=== PATIENT | male | born 1960 | race African-American/Black ===

== ENCOUNTER 2018-05-10 13:21 | Emergency (ER) | payer MEDICAID, OTHER ==
[~2018-05-10] VITALS: Ht 167.6 cm; Wt 96.0 kg
[~2018-05-10 13:21] MED LIST: NITR0.4T49 SL; TRAMADOL
[2018-05-10 13:31] VITALS: BP 165/105
[2018-05-10] MEDS ORDERED: BACITRACIN ZINC OINT UDPKT TOP ONE (15:15)
[2018-05-10] MEDS ORDERED: TETANUS, DIPHTHERIA, PERTUSSIS VAC/PF 0.5ML (>7YR OLD) IM ONE (15:15)
[2018-05-10] MEDS ORDERED: KETOROLAC 60MG/2ML VIAL IM ONE (15:15)
== END 2018-05-10 17:56 | disposition home or self-care (01) ==
LOC: ER 13:21
DX: S80.811A Abrasion, right lower leg, initial encounter (principal); M25.521 Pain in right elbow; M25.531 Pain in right wrist; M79.631 Pain in right forearm; I10 Essential (primary) hypertension; I51.9 Heart disease, unspecified; Z79.899 Other long term (current) drug therapy; V29.88XA Motorcycle rider (driver) (passenger) injured in other specified transport accidents, initial encounter; Y93.89 Activity, other specified; Y92.89 Other specified places as the place of occurrence of the external cause; Y99.8 Other external cause status
CPT/HCPCS: 73080; 73090; 73110; 90471; 90715; 96372; 99284; J1885

== ENCOUNTER 2019-11-08 14:24 | Emergency (ER) | payer OTHER ==
[~2019-11-08] VITALS: Ht 172.7 cm; Wt 100.0 kg
[2019-11-08] MEDS ORDERED: TETANUS, DIPHTHERIA, PERTUSSIS VAC/PF 0.5ML (>7YR OLD) IM ONE (15:15)
[2019-11-08] MEDS ORDERED: AMOXICILLIN/POTASSIUM CLAVULANATE 875/125MG TAB PO ONE (15:15)
[2019-11-08] MEDS ORDERED: ACETAMINOPHEN 325MG TABLET PO ONE (15:15)
[2019-11-08] MEDS ORDERED: KETOROLAC 60MG/2ML VIAL IM ONE (15:15)
[2019-11-08 17:47] VITALS: BP 140/83
== END 2019-11-08 17:48 | disposition home or self-care (01) ==
LOC: ER 14:24
DX: S01.501A Unspecified open wound of lip, initial encounter (principal); W18.39XA Other fall on same level, initial encounter; Y93.89 Activity, other specified; Y92.89 Other specified places as the place of occurrence of the external cause; Y99.8 Other external cause status; F10.10 Alcohol abuse, uncomplicated; Y90.0 Blood alcohol level of less than 20 mg/100 ml; M79.662 Pain in left lower leg; M79.661 Pain in right lower leg; I10 Essential (primary) hypertension
CPT/HCPCS: 70450; 72170; 90471; 90715; 96372; 99284; J1885

== ENCOUNTER 2019-12-23 00:23 | Emergency (ER) | payer MEDICAID, OTHER ==
[~2019-12-23] VITALS: Ht 180.3 cm; Wt 104.0 kg
[2019-12-23 03:59] LABS: BASOPHILS % 1.1 % (0.0-2.0); EOSINOPHILS % 0.6 % (0.0-5.0); HEMATOCRIT. 46.2 % (42.0-52.0); HEMOGLOBIN. 15.7 g/dL (14.0-18.0); MEAN CORPUSCULAR VOLUME 91.5 fL (80.0-94.0); MEAN PLATELET VOLUME 7.5 fl (7.4-10.4); MONOCYTES % 5.3 % (2.0-8.0); PLATELET 374 x1000/uL (130-400); RED BLOOD CELL COUNT 5.05 mill/uL (4.7-6.1); RED CELL DISTRIBUTION WIDTH 15.5 % (11.6-14.6)
[2019-12-23 04:01] LABS: CHLORIDE 109 mEq/L (98-107); INR 0.9; PROTHROMBIN TIME 10.2 sec (9.6-11.0)
[2019-12-23 04:02] LABS: CLARITY URINE CLEAR (CLEAR); COLOR URINE YELLOW (YELLOW); KETONES URINE NEGATIVE (NEGATIVE); LEUKOCYTE ESTERASE URINE NEGATIVE (NEGATIVE); NITRITE URINE NEGATIVE (NEGATIVE); OCCULT BLOOD URINE NEGATIVE (NEGATIVE); PROTEIN URINE NEGATIVE (NEGATIVE); SPECIFIC GRAVITY URINE 1.007 (1.005-1.030); UROBILINOGEN URINE 0.2 E.U./dL (0.2-1.0)
[2019-12-23 04:23] LABS: ETHANOL BLOOD 368 mg/dL
[2019-12-23 08:28] VITALS: BP 112/63
== END 2019-12-23 08:28 | disposition home or self-care (01) ==
LOC: ER 00:23
DX: F10.129 Alcohol abuse with intoxication, unspecified (principal); I11.9 Hypertensive heart disease without heart failure; M19.90 Unspecified osteoarthritis, unspecified site; Y90.8 Blood alcohol level of 240 mg/100 ml or more
CPT/HCPCS: 36415; 80053; 80320; 81003; 83880; 84484; 85025; 93005; 99285; G0480

== ENCOUNTER 2020-12-29 11:25 | Emergency (ER) | payer MEDICAID ==
[~2020-12-29] VITALS: Ht 177.8 cm; Wt 82.0 kg
[2020-12-29] MEDS ORDERED: METHOCARBAMOL 500MG TABLET PO ONE (13:30)
[2020-12-29] MEDS ORDERED: HYDROCODONE/ACETAMINOPHEN 5/325MG TABLET PO ONE (13:30)
[2020-12-29 14:40] LABS: *AMPHETAMINES SCREEN URINE NEGATIVE (NEGATIVE); *BARBITURATES SCREEN URINE NEGATIVE (NEGATIVE); *BENZODIAZEPINES SCREEN URINE NEGATIVE (NEGATIVE); *COCAINE SCREEN URINE PRESUMTIVE POSITIVE (NEGATIVE)
[2020-12-29 14:41] LABS: CANNABINOID URINE SCREEN PRESUMTIVE POSITIVE (NEGATIVE); METHADONE URINE SCREEN NEGATIVE (NEGATIVE); OPIATES URINE SCREEN NEGATIVE (NEGATIVE); PHENCYCLIDINE URINE SCREEN NEGATIVE (NEGATIVE)
[2020-12-29] MEDS ORDERED: METH-773 MT (16:12)
[2020-12-29] MEDS ORDERED: IBUP-2029 MT (16:12)
[2020-12-29 17:14] VITALS: BP 151/88
== END 2020-12-29 17:15 | disposition home or self-care (01) ==
LOC: ER 11:25
DX: M54.9 Dorsalgia, unspecified (principal); G89.29 Other chronic pain; M19.09 Primary osteoarthritis, other specified site; I11.9 Hypertensive heart disease without heart failure; F17.200 Nicotine dependence, unspecified, uncomplicated
CPT/HCPCS: 72131; 80305; 99284; Z7610

== ENCOUNTER 2021-01-23 20:42 | Inpatient (IN) | payer MEDICAID ==
[~2021-01-23] VITALS: Ht 165.1 cm; Wt 69.4 kg
[~2021-01-23 20:42] MED LIST changes: +IBUP-2029 MT; +METH-773 MT
[2021-01-23 22:45] LABS: CLARITY URINE CLEAR (CLEAR); COLOR URINE YELLOW (YELLOW); KETONES URINE NEGATIVE (NEGATIVE); LEUKOCYTE ESTERASE URINE 1+ (NEGATIVE); NITRITE URINE NEGATIVE (NEGATIVE); OCCULT BLOOD URINE 1+ (NEGATIVE); PROTEIN URINE NEGATIVE (NEGATIVE); UROBILINOGEN URINE 0.2 E.U./dL (0.2-1.0)
[2021-01-23] MEDS ORDERED: KETOROLAC 30MG/ML VIAL IV STA (22:50)
[2021-01-23] MEDS ORDERED: ONDANSETRON HCL 4MG/2ML INJ IV STA (22:50)
[2021-01-23 22:57] LABS: BASOPHILS % 0.9 % (0.0-2.0); EOSINOPHILS % 0.6 % (0.0-5.0); HEMATOCRIT. 39.6 % (42.0-52.0); HEMOGLOBIN. 13.1 g/dL (14.0-18.0); LYMPHOCYTES % 25.2 % (20.0-50.0); MEAN CORPUSCULAR HEMOGLOBIN 29.8 pg (28.0-32.0); MEAN CORPUSCULAR VOLUME 90.2 fL (80.0-94.0); MEAN PLATELET VOLUME 7.8 fl (7.4-10.4); MONOCYTES % 7.4 % (2.0-8.0); NEUTROPHILS % 65.9 % (40.0-76.0); PLATELET 222 x1000/uL (130-400); RED BLOOD CELL COUNT 4.39 mill/uL (4.7-6.1); RED CELL DISTRIBUTION WIDTH 14.9 % (11.6-14.6)
[2021-01-23] MEDS ORDERED: SODIUM CHLORIDE 0.9% 1,000 ML IV ONE (23:00)
[2021-01-23 23:03] LABS: CHLORIDE 110 mEq/L (98-107)
[2021-01-23 23:04] LABS: INR 1.1; PROTHROMBIN TIME 11.5 sec (9.6-11.0)
[2021-01-24] MEDS ORDERED: IOHEXOL-300 100 ML BOTTLE ONE (01:08)
[2021-01-24 11:30] VITALS: BP 162/92
[2021-01-24] MEDS ORDERED: ACETAMINOPHEN 325MG TABLET PO PRN ×2 (12:45)
[2021-01-24] MEDS ORDERED: CLONIDINE 0.1MG TABLET PO PRN (12:45)
[2021-01-24] MEDS ORDERED: IPRATROPIUM/ALBUTEROL 0.5-3(2.5)MG/3ML NEB HHN PRN (12:45)
[2021-01-24] MEDS ORDERED: LORAZEPAM 0.5MG TABLET PO PRN (12:45)
[2021-01-24] MEDS ORDERED: DOCUSATE SODIUM 100MG CAPSULE PO PRN (12:45)
[2021-01-24] MEDS ORDERED: HYDROCODONE/ACETAMINOPHEN 5/325MG TABLET PO PRN (12:45)
[2021-01-24] MEDS ORDERED: POTASSIUM CHLORIDE 20MEQ TABLET SR PO SCH (13:00)
[2021-01-24] MEDS: AMLODIPINE 10MG TABLET PO SCH (14:39)
[2021-01-24] MEDS ORDERED: MORPHINE SULFATE 2 MG/ML CPJ (NOT FOR IM USE) IV PRN (15:30)
[2021-01-24 16:02] VITALS: BP 189/110
[2021-01-24] MEDS ORDERED: HYDRALAZINE HCL 100MG TABLET PO NR (16:30)
[2021-01-24 17:26] VITALS: BP 161/80
[2021-01-24 20:00] VITALS: BP 148/89
[2021-01-24] MEDS: ONDANSETRON HCL 4MG/2ML INJ IV PRN (21:25)
[2021-01-24] MEDS: HYDRALAZINE HCL 100MG TABLET PO SCH (21:30)
[2021-01-25] VITALS (7 sets, daily range): BP systolic 117–167; BP diastolic 74–100
[2021-01-25 06:14] LABS: CHLORIDE 102 mEq/L (98-107)
[2021-01-25 06:27] LABS: BASOPHILS % 0.3 % (0.0-2.0); EOSINOPHILS % 0.1 % (0.0-5.0); HEMATOCRIT. 46.5 % (42.0-52.0); HEMOGLOBIN. 15.5 g/dL (14.0-18.0); LYMPHOCYTES % 15.3 % (20.0-50.0); MEAN CORPUSCULAR HEMOGLOBIN 30.3 pg (28.0-32.0); MEAN CORPUSCULAR VOLUME 90.9 fL (80.0-94.0); MEAN PLATELET VOLUME 8.4 fl (7.4-10.4); MONOCYTES % 6.3 % (2.0-8.0); PLATELET 225 x1000/uL (130-400); RED BLOOD CELL COUNT 5.11 mill/uL (4.7-6.1); RED CELL DISTRIBUTION WIDTH 14.6 % (11.6-14.6)
[2021-01-25] MEDS: HYDRALAZINE HCL 100MG TABLET PO SCH ×3 (06:27→21:11)
[2021-01-25] MEDS: ONDANSETRON HCL 4MG/2ML INJ IV PRN (06:27)
[2021-01-25] MEDS: OMEPRAZOLE 20MG CAPSULE EXTENDED RELEASE PO SCH (06:28)
[2021-01-25] MEDS: AMLODIPINE 10MG TABLET PO SCH (09:10)
[2021-01-25] MEDS: THIAMINE HCL 100MG TABLET PO SCH (09:10)
[2021-01-25] MEDS ORDERED: POTASSIUM CHLORIDE INJ 40 MEQ in DEXT 5% WATER 250 ML IV NR (12:00)
[2021-01-25 14:00] LABS: *AMPHETAMINES SCREEN URINE NEGATIVE (NEGATIVE); *BARBITURATES SCREEN URINE NEGATIVE (NEGATIVE)
[2021-01-25 14:01] LABS: *BENZODIAZEPINES SCREEN URINE NEGATIVE (NEGATIVE); *COCAINE SCREEN URINE NEGATIVE (NEGATIVE); CANNABINOID URINE SCREEN PRESUMTIVE POSITIVE (NEGATIVE); METHADONE URINE SCREEN NEGATIVE (NEGATIVE); OPIATES URINE SCREEN NEGATIVE (NEGATIVE); PHENCYCLIDINE URINE SCREEN NEGATIVE (NEGATIVE)
[2021-01-26] VITALS (8 sets, daily range): BP systolic 107–141; BP diastolic 67–86
[2021-01-26] MEDS: HYDRALAZINE HCL 100MG TABLET PO SCH ×3 (05:31→20:37)
[2021-01-26] MEDS: OMEPRAZOLE 20MG CAPSULE EXTENDED RELEASE PO SCH (06:07)
[2021-01-26 06:57] LABS: CHLORIDE 105 mEq/L (98-107)
[2021-01-26 07:01] LABS: BASOPHILS % 0.4 % (0.0-2.0); HEMATOCRIT. 47.5 % (42.0-52.0); HEMOGLOBIN. 16.3 g/dL (14.0-18.0); LYMPHOCYTES % 19.3 % (20.0-50.0); MEAN CORPUSCULAR HEMOGLOBIN 31.1 pg (28.0-32.0); MEAN CORPUSCULAR VOLUME 90.6 fL (80.0-94.0); MEAN PLATELET VOLUME 8.4 fl (7.4-10.4); MONOCYTES % 8.4 % (2.0-8.0); NEUTROPHILS % 71.9 % (40.0-76.0); PLATELET 222 x1000/uL (130-400); RED BLOOD CELL COUNT 5.24 mill/uL (4.7-6.1); RED CELL DISTRIBUTION WIDTH 14.7 % (11.6-14.6)
[2021-01-26] MEDS: AMLODIPINE 10MG TABLET PO SCH (08:35)
[2021-01-26] MEDS: THIAMINE HCL 100MG TABLET PO SCH (08:35)
[2021-01-26] MEDS ORDERED: POTASSIUM CHLORIDE 20MEQ TABLET SR PO NR (11:45)
[2021-01-27] VITALS: BP 115/91
[2021-01-27 04:00] VITALS: BP 135/83
[2021-01-27] MEDS: OMEPRAZOLE 20MG CAPSULE EXTENDED RELEASE PO SCH (06:04)
[2021-01-27] MEDS: HYDRALAZINE HCL 100MG TABLET PO SCH ×2 (06:04→13:30)
[2021-01-27 07:30] LABS: CHLORIDE 104 mEq/L (98-107)
[2021-01-27 07:31] LABS: BASOPHILS % 0.5 % (0.0-2.0); EOSINOPHILS % 0.3 % (0.0-5.0); HEMATOCRIT. 46.8 % (42.0-52.0); HEMOGLOBIN. 15.8 g/dL (14.0-18.0); LYMPHOCYTES % 29.3 % (20.0-50.0); MEAN CORPUSCULAR HEMOGLOBIN 30.6 pg (28.0-32.0); MEAN CORPUSCULAR VOLUME 90.6 fL (80.0-94.0); MEAN PLATELET VOLUME 8.5 fl (7.4-10.4); MONOCYTES % 9.2 % (2.0-8.0); NEUTROPHILS % 60.7 % (40.0-76.0); PLATELET 193 x1000/uL (130-400); RED BLOOD CELL COUNT 5.16 mill/uL (4.7-6.1); RED CELL DISTRIBUTION WIDTH 14.8 % (11.6-14.6)
[2021-01-27 08:00] VITALS: BP 130/79
[2021-01-27] MEDS: AMLODIPINE 10MG TABLET PO SCH (08:40)
[2021-01-27] MEDS: THIAMINE HCL 100MG TABLET PO SCH (08:40)
[2021-01-27 12:00] VITALS: BP_SYST 105; BP_SYST 114; BP_SYST 121; BP_DIAS 70; BP_DIAS 78; BP_DIAS 83
[2021-01-27] MEDS ORDERED: AMLO10TA80 PO (12:51)
[2021-01-27] MEDS ORDERED: HYDR100T26 PO (12:51)
[2021-01-27] MEDS ORDERED: POTASSIUM CHLORIDE 20MEQ/PACKET PO SCH (13:00)
[2021-01-27 15:42] VITALS: BP 121/70
[2021-01-28] MEDS ORDERED: FAMOTIDINE 20MG TABLET PO SCH (09:00)
== END 2021-01-27 17:00 | disposition home or self-care (01) | DRG 241 ==
LOC: ER 20:42 → 8WST 01-24 03:58 → ENRESERV 01-24 08:11
PROVIDERS: ADMIT Internal Medicine; ATTEND Internal Medicine
DX: K29.20 Alcoholic gastritis without bleeding (principal); E44.1 Mild protein-calorie malnutrition; E87.8 Other disorders of electrolyte and fluid balance, not elsewhere classified; K52.9 Noninfective gastroenteritis and colitis, unspecified; F17.210 Nicotine dependence, cigarettes, uncomplicated; I10 Essential (primary) hypertension; E87.6 Hypokalemia; M16.0 Bilateral primary osteoarthritis of hip; Z82.49 Family history of ischemic heart disease and other diseases of the circulatory system; Z79.899 Other long term (current) drug therapy; Z71.41 Alcohol abuse counseling and surveillance of alcoholic; Z71.6 Tobacco abuse counseling; Z68.25 Body mass index [BMI] 25.0-25.9, adult
CPT/HCPCS: 36415; 74177; 80048; 80053; 80305; 81003; 85025; 93005; 99285; C1893; J1885; J2405; J3480; J7030; J7060; Q9967

== ENCOUNTER 2021-03-07 14:29 | Emergency (ER) | payer MEDICAID ==
[~2021-03-07] VITALS: Ht 175.3 cm; Wt 73.0 kg
[~2021-03-07 14:29] MED LIST changes: +AMLO10TA80 PO; +HYDR100T26 PO; -IBUP-2029 MT; -METH-773 MT; +METH500T6 MT; -TRAMADOL
[2021-03-07] MEDS ORDERED: MORPHINE SULFATE 4 MG/ML CPJ (NOT FOR IM USE) IV STA (15:33)
[2021-03-07] MEDS ORDERED: SODIUM CHLORIDE 0.9% 1,000 ML IV ONE (15:45)
[2021-03-07 16:16] LABS: EOSINOPHILS % 1.6 % (0.0-5.0); HEMATOCRIT. 38.5 % (42.0-52.0); HEMOGLOBIN. 12.6 g/dL (14.0-18.0); LYMPHOCYTES % 33.5 % (20.0-50.0); MEAN CORPUSCULAR HEMOGLOBIN 30.4 pg (28.0-32.0); MEAN CORPUSCULAR VOLUME 92.7 fL (80.0-94.0); MEAN PLATELET VOLUME 7.9 fl (7.4-10.4); NEUTROPHILS % 52.9 % (40.0-76.0); PLATELET 131 x1000/uL (130-400); RED BLOOD CELL COUNT 4.15 mill/uL (4.7-6.1); RED CELL DISTRIBUTION WIDTH 17.5 % (11.6-14.6)
[2021-03-07 16:23] LABS: CHLORIDE 111 mEq/L (98-107)
[2021-03-07 16:26] LABS: INR 0.9; PROTHROMBIN TIME 10.2 sec (9.6-11.0)
[2021-03-07 17:24] LABS: CLARITY URINE CLEAR (CLEAR); COLOR URINE YELLOW (YELLOW); KETONES URINE TRACE (NEGATIVE); LEUKOCYTE ESTERASE URINE NEGATIVE (NEGATIVE); NITRITE URINE NEGATIVE (NEGATIVE); OCCULT BLOOD URINE NEGATIVE (NEGATIVE); PH URINE 5.5 (4.5-8.0); PROTEIN URINE NEGATIVE (NEGATIVE); SPECIFIC GRAVITY URINE 1.032 (1.005-1.030)
[2021-03-07] MEDS ORDERED: HYDR26CR2 TP (18:22)
[2021-03-07] MEDS ORDERED: KETOROLAC 30MG/ML VIAL IV ONE (18:30)
[2021-03-07 18:44] VITALS: BP 144/85
[2021-03-07] MEDS ORDERED: IOHEXOL-300 100 ML BOTTLE ONE (19:07)
== END 2021-03-07 19:06 | disposition home or self-care (01) ==
LOC: ER 14:47
DX: K64.4 Residual hemorrhoidal skin tags (principal); F17.200 Nicotine dependence, unspecified, uncomplicated; F12.10 Cannabis abuse, uncomplicated; R11.2 Nausea with vomiting, unspecified; I10 Essential (primary) hypertension
CPT/HCPCS: 36415; 74177; 80053; 81003; 83690; 84484; 85025; 85610; 96361; 96374; 96375; 99285; J1885; J2270; J7030; Q9967; Z7610; A4315

== ENCOUNTER 2021-07-26 14:54 | Emergency (ER) | payer MEDICAID, OTHER ==
[~2021-07-26] VITALS: Ht 177.8 cm; Wt 75.0 kg
[~2021-07-26 14:54] MED LIST changes: +HYDR26CR2 TP; +METH-773 MT; -METH500T6 MT
[2021-07-26] MEDS ORDERED: ACETAMINOPHEN 325MG TABLET PO ONE (16:00)
[2021-07-26] MEDS ORDERED: CYCLOBENZAPRINE 10MG TABLET PO ONE (16:30)
[2021-07-26] MEDS ORDERED: TRAMADOL 50MG TABLET PO ONE (19:00)
[2021-07-26] MEDS ORDERED: IBUP-2028 MT (20:26)
[2021-07-26 20:50] VITALS: BP 129/92
== END 2021-07-26 20:50 | disposition home or self-care (01) ==
LOC: ER 14:54
DX: M54.50 Low back pain, unspecified (principal); M25.552 Pain in left hip; M19.90 Unspecified osteoarthritis, unspecified site; J45.909 Unspecified asthma, uncomplicated; I10 Essential (primary) hypertension; I25.10 Atherosclerotic heart disease of native coronary artery without angina pectoris; F12.10 Cannabis abuse, uncomplicated; Z99.3 Dependence on wheelchair; W01.0XXA Fall on same level from slipping, tripping and stumbling without subsequent striking against object, initial encounter; Y93.89 Activity, other specified; Y92.018 Other place in single-family (private) house as the place of occurrence of the external cause
CPT/HCPCS: 72100; 73502; 73552; 99284